=== PATIENT | male | born 1965 | race Caucasian/White ===

== ENCOUNTER 2018-10-21 03:29 | Inpatient (IN) | payer BC, MEDICARE ==
[~2018-10-21] VITALS: Ht 177.8 cm; Wt 65.8 kg
[2018-10-21] MEDS ORDERED: IV NORMAL SALINE 1000 ML BAG IV ONE ×2 (03:45→05:30)
[2018-10-21] MEDS ORDERED: ONDANSETRON 4 MG/2 ML VIAL IV ONE (03:45)
[2018-10-21] MEDS ORDERED: ONDANSETRON 4 MG/2 ML VIAL ONE (03:57)
[2018-10-21 04:09] LABS: BASOPHILS % (AUTO) 0.3 % (0.0-2.0); EOSINOPHILS % (AUTO) 0.2 % (0.0-7.0); HEMATOCRIT 42.9 % (36.7-47.1); HEMOGLOBIN 14.4 g/dL (12.5-16.3); LYMPHOCYTES # (AUTO) 2.7 K/uL (20.0-40.0); LYMPHOCYTES % (AUTO) 18.5 % (20.5-51.5); MEAN CORPUSCULAR HEMOGLOBIN 31.7 uug (23.8-33.4); MEAN CORPUSCULAR HGB CONC 34 g/dL (32.5-36.3); MEAN CORPUSCULAR VOLUME 94.7 fL (73.0-96.2); MONOCYTES # (AUTO) 1.4 K/uL (2.0-10.0); MONOCYTES % (AUTO) 9.7 % (0.0-11.0); NEUTROPHILS # (AUTO) 10.5 K/uL (1.8-8.9); NEUTROPHILS % (AUTO) 71.3 % (38.5-71.5); PLATELET COUNT (AUTO) 256 K/uL (152-348); RED BLOOD CELL COUNT(AUTO) 4.53 MIL/uL (4.06-5.63); WHITE BLOOD COUNT (AUTO) 14.7 K/uL (3.6-10.2)
[2018-10-21 04:27] LABS: BILIRUBIN,DIRECT 0.3 mg/dL (0.0-0.2); CREATININE 2.3 mg/dL (0.6-1.3); POTASSIUM 3.3 mmol/L (3.5-5.1); TOTAL PROTEIN, SERUM 6.9 g/dL (6.4-8.2)
[2018-10-21] MEDS ORDERED: POTASSIUM CHLORIDE 20 MEQ TAB.PRT.SR PO ONE (04:45)
[2018-10-21] MEDS ORDERED: PANTOPRAZOLE SODIUM 40 MG VIAL IV ONE (05:00)
[2018-10-21] MEDS ORDERED: LORAZEPAM 2 MG/1 ML VIAL IV ONE ×2 (05:00)
[2018-10-21] MEDS ORDERED: PANTOPRAZOLE SODIUM 40 MG VIAL ONE (05:05)
[2018-10-21] MEDS ORDERED: LORAZEPAM 2 MG/1 ML VIAL ONE (05:05)
[2018-10-21] MEDS ORDERED: METO25TA6 PO (05:12)
--- NOTE | 2018-10-21 05:12 | NUR ---
Pt states he takes about a dozen medications, unable to provide names and dosages at this time, only able to remember metoprolol.
[2018-10-21] MEDS ORDERED: LIDOCAINE 2% (UROJET) 10 ML JELLY MM ONE ×2 (05:20→05:30)
[2018-10-21 05:35] LABS: *BILIRUBIN,URIN 1+ (NEGATIVE); *BLOOD, URINE NEGATIVE (NEGATIVE); *CLARITY,URINE CLEAR (CLEAR); *COLOR,URINE YELLOW (YELLOW); *KETONES,URINE TRACE (NEGATIVE); LEUKOCYTE ESTERASE ,URINE NEGATIVE (NEGATIVE); NITRITE, URINE NEGATIVE (NEGATIVE); PH,URINE 5.5 (5.0-8.0); UGLUCOSE NEGATIVE (NEGATIVE)
[2018-10-21] MEDS ORDERED: MEROPENEM 1,000 MG in IV NORMAL SALINE 250 ML IV ONE (05:45)
[2018-10-21] MEDS ORDERED: VANCOMYCIN IV 1,000 MG in IV DEXTROSE 5% 250 ML IV ONE (05:45)
[2018-10-21 05:47] LABS: BACTERIA,URINE NONE SEEN /HPF (NONE SEEN); RBC,URINE 0-3 /HPF (0-3); SQUAMOUS EPITHELIAL CELL,UR FEW /HPF (NONE SEEN); WBC,URINE 0-3 /HPF (0-3)
[2018-10-21] MEDS ORDERED: MEROPENEM 1 G VIAL IV ONE (05:51)
--- NOTE | 2018-10-21 05:57 | NUR ---
Dr. Pierson speaking to [facility] nephrology.
--- NOTE | 2018-10-21 06:04 | NUR ---
Pt. admitted to Telemetry, under care of Dr. Mcmahon. Diagnosis - Dehydration, Intractable Abdominal Pain. Belongs List completed
[2018-10-21] MEDS ORDERED: ALBUTEROL SULFATE 2.5 MG/3 ML NEBU ONE (06:32)
[2018-10-21] MEDS ORDERED: IPRATROPIUM BROMIDE 0.5 MG/2.5 ML NEBU ONE (06:33)
[2018-10-21] MEDS ORDERED: ALPR1TAB7 PO (06:39)
--- NOTE | 2018-10-21 06:58 | NUR ---
pt resting in bed comfortably. no episodes of vomiting.
[2018-10-21] MEDS ORDERED: VANCOMYCIN IV 200 ML ONE (07:03)
--- NOTE | 2018-10-21 07:10 | NUR ---
Report given to OG Patel for continuty of care.
--- NOTE | 2018-10-21 07:20 | NUR ---
recieved pt in bed, resting comfortably. Still awaiting Ct result.
--- NOTE | 2018-10-21 07:45 | NUR ---
[facility]. Continue w/ vancomycin infsion.
--- NOTE | 2018-10-21 07:54 | NUR ---
admitted from home a 53 yo male with adm dx of rapid afib, renal disease leukocytosis, dehydration, awake alert and oriented x3, seen by dr gould with orders. admission assessment initiated.
[2018-10-21] MEDS ORDERED: METOCLOPRAMIDE HCL 10 MG/2 ML VIAL IV PRN (08:00)
[2018-10-21] MEDS ORDERED: LEVOFLOXACIN 500 MG/D5W 500 MG in PREMIXED 1 EACH IV SCH (08:15)
[2018-10-21 08:30] VITALS: BP 95/54
[2018-10-21] MEDS: METRONIDAZOLE 500 MG/NS 100ML 500 MG in PREMIXED 1 EACH IV SCH ×3 (09:46→21:49)
[2018-10-21] MEDS: IV D5/ 0.9% NACL 1,000 ML IV PRN ×2 (09:47→22:59)
[2018-10-21] MEDS: PANTOPRAZOLE SODIUM 40 MG VIAL IV SCH (09:49)
[2018-10-21] MEDS ORDERED: LEVOFLOXACIN 500 MG/D5W 500 MG in PREMIXED 1 EACH IV ONE (10:00)
[2018-10-21] MEDS: LORAZEPAM 2 MG/1 ML VIAL IV PRN ×2 (10:08→19:40)
[2018-10-21] MEDS: METOPROLOL TARTRATE 25 MG TABLET PO SCH ×2 (10:36→20:39)
[2018-10-21 11:20] VITALS: BP 114/63
--- NOTE | 2018-10-21 11:42 | NUR ---
RESTING COMFORTABLY, STARTED ON FLAGYL AND LEVAQUIN NO ADVERSE OR ALLERGY REACTION NOTED. CONTINUE WITH IVF AT 100 MLS/HR. STARTED ON 3L O2 NC DUE C/O SOB. SATURATING 75-97%. REMAINS AFIB UN CONTROLLED ON MONITOR RATE OF 128-132. LOPRESSOR PO STARTED. OBSERVED
[2018-10-21] MEDS: ONDANSETRON INJ 8 MG in IV NORMAL SALINE 50 ML IV PRN ×2 (12:58→21:03)
--- NOTE | 2018-10-21 13:15 | NUR ---
VOMITED LARGE AMOUNT OF SECRETION CLEAR COLOR PRN ZOFRAN GIVEN
[2018-10-21] MEDS ORDERED: POTASSIUM CHLORIDE 10 MEQ TAB.PRT.SR PO ONE (14:00)
[2018-10-21] MEDS: ALPRAZOLAM 0.5 MG TABLET PO PRN ×2 (15:03→23:03)
[2018-10-21 15:34] VITALS: BP 88/56
--- NOTE | 2018-10-21 19:30 | NUR ---
Received patient in room, vomiting clear secretions. No signs of acute distress noted. No complaints of pain or SOB. Just wants something to help with the vomiting. Patient has PRN zofran IVPB, that is due in a couple hours and explained to patient and he understood. Patient is also on antibiotics. IVF running on the right forearm. No s/s of infiltration or infection noted. Safety measures initiated. Bed is low and locked, call light within reach. Will continue to monitor.
[2018-10-21 20:00] VITALS: BP 96/65
--- NOTE | 2018-10-22 00:16 | NUR ---
Patient is now resting comfortably. PRN Zofran IVPB given and seems to be effective for now. PRN anti-anxiety medication also given and tolerated well. Patient is A-fib controlled in the 80-90s on TELE monitor. Will continue to monitor.
[2018-10-22] MEDS: LORAZEPAM 2 MG/1 ML VIAL IV PRN ×3 (01:55→20:17)
[2018-10-22 04:00] VITALS: BP 107/73
--- NOTE | 2018-10-22 04:26 | NUR ---
Around 3:50 lab endorsed blood culture result of gram positive cocci in chains. Relayed to on-call Dr. Mcmahon with new orders. Will continue to monitor.
[2018-10-22] MEDS: ONDANSETRON INJ 8 MG in IV NORMAL SALINE 50 ML IV PRN ×2 (05:20→20:36)
[2018-10-22 05:30] LABS: BASOPHILS # (AUTO) 0.1 K/uL (0.0-8.0); BASOPHILS % (AUTO) 0.4 % (0.0-2.0); HEMATOCRIT 42.4 % (36.7-47.1); HEMOGLOBIN 14.1 g/dL (12.5-16.3); LYMPHOCYTES # (AUTO) 2.5 K/uL (20.0-40.0); LYMPHOCYTES % (AUTO) 17.8 % (20.5-51.5); MEAN CORPUSCULAR HEMOGLOBIN 31.4 uug (23.8-33.4); MEAN CORPUSCULAR HGB CONC 33 g/dL (32.5-36.3); MEAN CORPUSCULAR VOLUME 94.5 fL (73.0-96.2); MONOCYTES # (AUTO) 1.3 K/uL (2.0-10.0); MONOCYTES % (AUTO) 9.2 % (0.0-11.0); NEUTROPHILS # (AUTO) 10.1 K/uL (1.8-8.9); NEUTROPHILS % (AUTO) 72.6 % (38.5-71.5); PLATELET COUNT (AUTO) 230 K/uL (152-348); RED BLOOD CELL COUNT(AUTO) 4.49 MIL/uL (4.06-5.63)
--- NOTE | 2018-10-22 05:45 | NUR ---
Patient slept intermittently throughout the night. When patient was awake, he would feel nauseous and try to vomit. Patient would vomit clear liquids, only after drinking water. PRN anti-anxiety medication would help and PRN zofran for only a short time. IVF running on the right forearm. Safety measures given. Will endorse to next shift.
[2018-10-22 05:53] LABS: CREATININE 2.3 mg/dL (0.6-1.3); PHOSPHOROUS 1.3 mg/dL (2.5-4.9); POTASSIUM 4.1 mmol/L (3.5-5.1)
[2018-10-22 06:00] LABS: MAGNESIUM 1.2 mg/dL (1.8-2.4)
--- NOTE | 2018-10-22 07:12 | NUR ---
RECEIVED PATIENT ALERT AND ORIENTED WITH NO SOB NOTED AT THIS TIME . WILL PROVIDE SAFETY AND COMFORT AT ALL TIMES. CALL LIGHT WITHIN REACHED. WILL CONTINUE TO MONITOR AND CONTINUE TREATMENT PLAN.
[2018-10-22] MEDS: ALPRAZOLAM 0.5 MG TABLET PO PRN ×2 (07:56→16:35)
[2018-10-22] MEDS: PANTOPRAZOLE SODIUM 40 MG VIAL IV SCH (08:00)
[2018-10-22] MEDS: METOPROLOL TARTRATE 25 MG TABLET PO SCH ×2 (08:01→21:03)
[2018-10-22] MEDS ORDERED: VANCOMYCIN IV 1 G in PREMIXED 0 EACH IV ONE (10:00)
[2018-10-22] MEDS ORDERED: LEVOFLOXACIN/D5W 250 MG in PREMIX 1 EA IV SCH (10:00)
[2018-10-22] MEDS: IV D5/ 0.9% NACL 1,000 ML IV PRN (10:01)
[2018-10-22 11:23] VITALS: BP 110/82
[2018-10-22] MEDS: MAGNESIUM SULFATE/D5W 100 ML IV SCH ×2 (12:02→13:04)
[2018-10-22] MEDS ORDERED: PANT20TA2 PO (12:51)
[2018-10-22] MEDS ORDERED: PRED2.5T PO ×2 (12:51)
[2018-10-22] MEDS ORDERED: TACROLIMUS PO (12:51)
[2018-10-22] MEDS ORDERED: MYCO360T PO (12:51)
[2018-10-22] MEDS ORDERED: PANT40TA4 PO (12:51)
[2018-10-22] MEDS ORDERED: AMLO10TA7 PO (12:51)
[2018-10-22] MEDS ORDERED: DILT120C11 PO (12:52)
[2018-10-22] MEDS ORDERED: ASPI-618 PO (13:03)
--- NOTE | 2018-10-22 13:26 | NUR ---
CLINICAL PHARMACY NOTE: VANCOMYCIN PHARMACY TO DOSE Subjective: to start vancomycin in this 53 y/o male for indication of bloodstream infection/early sepsis Objective: weight 65kg height 177cm BUN/Scr 17/2.3 WBC 14 temp 97.7 1gm vanco given 10/21 @0701 Random today with am labs: 8.5 Assessment/Plan As renal function is compromised, will dose per level for now. Dosed 1gm vanco at 1000 per today's random level. Next random ordered for tomorrow am. Will check when resulted and re-dose as appropriate. Will follow
[2018-10-22] MEDS ORDERED: TACROLIMUS 1 MG PO SCH (14:15)
[2018-10-22] MEDS ORDERED: SODIUM PHOSPHATE MM 15 MM in IV DEXTROSE 5% 250 ML IV ONE (14:15)
[2018-10-22] MEDS: ASPIRIN EC 81 MG TABLET.DR PO SCH ×3 (14:15→16:38)
[2018-10-22] MEDS: DILTIAZEM HCL CD 120 MG CAP.SR.24H PO SCH ×2 (14:33→21:02)
--- NOTE | 2018-10-22 14:55 | NUR ---
GOT ORDER FOR SODIUM PHOSPHATE AND ZOSYN FOR PATIENT , CALLED PHARMACY AND STATED THAT THE TWO MEDICATIONS ARE COMPATIBLE.
[2018-10-22] MEDS: PIPERACILLIN/TAZOBACTAM/D5W 50 ML IV SCH ×2 (14:58→20:27)
[2018-10-22] MEDS: predniSONE 2.5 MG TABLET PO SCH (14:59)
[2018-10-22] MEDS: PANTOPRAZOLE SODIUM 40 MG TABLET.DR PO SCH ×2 (15:13→16:38)
[2018-10-22 15:21] VITALS: BP 102/64
[2018-10-22] MEDS ORDERED: TACR1CAP PO (15:21)
[2018-10-22] MEDS ORDERED: IV NORMAL SALINE 500 ML IV ONE (15:45)
[2018-10-22] MEDS: TACROLIMUS ANHYDROUS 0.5 MG CAPSULE PO SCH (16:16)
[2018-10-22] MEDS: MYCOPHENOLIC ACID 180 MG PO SCH (16:31)
--- NOTE | 2018-10-22 18:42 | NUR ---
PATIENT ALERT AND ORIENTED X4 AND RESTING IN BED WITH NO SOB NOTED AT THIS TIME , NO C/O PAIN AT THIS TIME. WILL PROVIDE SAFETY AND COMFORT AT ALL TIMES. CALL LIGHT WITHIN REACHED. WILL CONTINUE TO MONITOR AND CONTINUE TREATMENT PLAN.
--- NOTE | 2018-10-22 19:30 | NUR ---
Received patient in room, vomiting clear liquids. Will administer PRN Zofran IVPB. No signs of acute distress. No complaints of pain just nausea. Complaining of SOB and requesting to use mask. IV on the right forearm and midline ENID are intact and patent. Patient able to make needs known. Safety measures initiated. Bed is low and locked, call light within reach. Will continue to monitor.
[2018-10-22 20:00] VITALS: BP 117/79
[2018-10-22] MEDS ORDERED: MISCELLANEOUS MED ONE (21:00)
[2018-10-22] MEDS ORDERED: MYCOPHENOLATE MOFETIL 250 MG CAPSULE PO ONE (21:00)
[2018-10-22] MEDS: ZOLPIDEM 5 MG TABLET PO PRN (23:23)
[2018-10-23 00:17] VITALS: BP 116/82
[2018-10-23] MEDS: PIPERACILLIN/TAZOBACTAM/D5W 50 ML IV SCH ×4 (02:29→20:29)
[2018-10-23 02:45] LABS: *CREATININE,URINE 31.2 mg/dL (30-125)
[2018-10-23 04:00] VITALS: BP 115/72
[2018-10-23] MEDS: IV D5/ 0.9% NACL 1,000 ML IV PRN ×2 (06:08→17:11)
[2018-10-23] MEDS: PANTOPRAZOLE SODIUM 40 MG TABLET.DR PO SCH ×2 (06:16→17:07)
[2018-10-23] MEDS: MYCOPHENOLIC ACID 180 MG PO SCH ×2 (06:34→17:21)
--- NOTE | 2018-10-23 06:37 | NUR ---
Patient slept well after receiving PRN Ambien. Patient is on 6L oxygen through mask for comfort. No signs of acute distress noted. Medication given as ordered and tolerated well. Safety measures given
[2018-10-23 06:43] LABS: BASOPHILS % (AUTO) 0.4 % (0.0-2.0); EOSINOPHILS % (AUTO) 0.1 % (0.0-7.0); HEMATOCRIT 41.9 % (36.7-47.1); LYMPHOCYTES % (AUTO) 17.3 % (20.5-51.5); MEAN CORPUSCULAR HEMOGLOBIN 31.6 uug (23.8-33.4); MEAN CORPUSCULAR HGB CONC 33 g/dL (32.5-36.3); MEAN CORPUSCULAR VOLUME 94.4 fL (73.0-96.2); MONOCYTES # (AUTO) 1.1 K/uL (2.0-10.0); NEUTROPHILS # (AUTO) 8.2 K/uL (1.8-8.9); NEUTROPHILS % (AUTO) 72.2 % (38.5-71.5); PLATELET COUNT (AUTO) 200 K/uL (152-348); RED BLOOD CELL COUNT(AUTO) 4.44 MIL/uL (4.06-5.63); WHITE BLOOD COUNT (AUTO) 11.4 K/uL (3.6-10.2)
[2018-10-23 06:59] LABS: MAGNESIUM 1.5 mg/dL (1.8-2.4); PHOSPHOROUS 3.5 mg/dL (2.5-4.9); POTASSIUM 3.2 mmol/L (3.5-5.1); VANCOMYCIN,RANDOM 12.9 ug/mL (18.0-26.0)
[2018-10-23] MEDS: TACROLIMUS ANHYDROUS 0.5 MG CAPSULE PO SCH ×2 (08:56→17:08)
[2018-10-23] MEDS: ASPIRIN EC 81 MG TABLET.DR PO SCH ×2 (08:56→17:07)
[2018-10-23] MEDS: predniSONE 2.5 MG TABLET PO SCH (08:57)
[2018-10-23] MEDS ORDERED: AMLODIPINE 10 MG TABLET PO SCH (09:00)
[2018-10-23] MEDS ORDERED: MISCELLANEOUS MED ONE (09:00)
[2018-10-23] MEDS: METOPROLOL TARTRATE 25 MG TABLET PO SCH ×2 (09:06→20:24)
[2018-10-23] MEDS: DILTIAZEM HCL CD 120 MG CAP.SR.24H PO SCH ×2 (09:07→20:23)
[2018-10-23] MEDS: ALPRAZOLAM 0.5 MG TABLET PO PRN ×2 (09:19→15:04)
[2018-10-23] MEDS ORDERED: VANCOMYCIN IV 1 G in PREMIXED 0 EACH IV ONE (10:00)
--- NOTE | 2018-10-23 10:48 | NUR ---
CLINICAL PHARMACY NOTE: VANCOMYCIN PHARMACY TO DOSE Subjective: to continue vancomycin in this 53 y/o male for indication of bloodstream infection/early sepsis Objective: weight 65kg height 177cm BUN/Scr 13/2.0 WBC 14 (10/22) temp 98.2 1gm vanco given 10/21 @0701 Random today with am labs: 12.9 Assessment/Plan As renal function is compromised, will dose per level for now. Dosed 1gm vanco at 1000 per today's random level. Next random ordered for tomorrow am. Will check when resulted and re-dose as appropriate. Will follow
[2018-10-23] MEDS: LORAZEPAM 2 MG/1 ML VIAL IV PRN ×2 (11:19→18:18)
[2018-10-23 11:36] VITALS: BP 123/89
[2018-10-23] MEDS ORDERED: POTASSIUM CHLORIDE 10 MEQ TAB.PRT.SR PO ONE (12:45)
[2018-10-23] MEDS ORDERED: MAGNESIUM SULFATE/D5W 100 ML IV SCH (12:45)
[2018-10-23 14:57] VITALS: BP 111/77
--- NOTE | 2018-10-23 19:05 | NUR ---
Received patient in bed awake, A&Ox3. Not in distress at this time. No complaints of pain, no episodes of n/v at this time. ENID midline intact and patent. IV access to R wrist infiltrated, removed w/ complete tip. Cold compress applied to site. Kept bed in low position, locked w/ side rails up x 2. Call light within reach. Will continue to monitor
--- NOTE | 2018-10-23 19:28 | NUR ---
Pt received, assessed, AOx3, able to make needs known. Pt denies pain, just nausea, no SOB on 6L mask. Pt compliant with routine medications and care as provided. Pt seen by [facility] and [facility]. New orders received. IV in right arm and ENID midline flushed and patent running fluids and antibiotics. VSS. Stool sample collected and send to lab. All comfort and safety measures implemented. Call light and personal belongings placed within reach. Will continue to monitor and endorse to oncoming cook night
[2018-10-23 20:24] VITALS: BP 111/61
[2018-10-23] MEDS ORDERED: MYCOPHENOLATE MOFETIL 250 MG CAPSULE PO ONE (21:00)
[2018-10-23] MEDS: ZOLPIDEM 5 MG TABLET PO PRN (22:53)
[2018-10-24] MEDS: PIPERACILLIN/TAZOBACTAM/D5W 50 ML IV SCH ×3 (01:38→13:33)
[2018-10-24] MEDS: IV D5/ 0.9% NACL 1,000 ML IV PRN ×2 (05:56→22:43)
[2018-10-24 06:00] VITALS: BP 105/72
--- NOTE | 2018-10-24 06:15 | NUR ---
Patient took PRN Ambien and was able to sleep throughout the night. Patient has been compliant and cooperative w/ nursing care. Patient is for ultrasound of abdomen this AM, instructed to be NPO. All needs attended.
[2018-10-24 06:37] LABS: CREATININE 2.1 mg/dL (0.6-1.3); MAGNESIUM 1.5 mg/dL (1.8-2.4); VANCOMYCIN,RANDOM 16.3 ug/mL (18.0-26.0)
--- NOTE | 2018-10-24 07:30 | NUR ---
PATIENT IS AWAKE, ON O2 4 LITER VIA FACE MASK, O2 SAT 99%, NO ACUTE DISTRESS NOTED AT THIS TIME
[2018-10-24] MEDS ORDERED: POTASSIUM CHLORIDE 20 MEQ TAB.PRT.SR PO ONE (08:30)
[2018-10-24] MEDS ORDERED: MISCELLANEOUS MED ONE (09:00)
[2018-10-24] MEDS ORDERED: MYCOPHENOLATE MOFETIL 250 MG CAPSULE PO ONE ×2 (09:00→21:00)
[2018-10-24] MEDS: ASPIRIN EC 81 MG TABLET.DR PO SCH ×2 (09:25→16:56)
[2018-10-24] MEDS: METOPROLOL TARTRATE 25 MG TABLET PO SCH ×2 (09:27→21:00)
[2018-10-24] MEDS: DILTIAZEM HCL CD 120 MG CAP.SR.24H PO SCH ×2 (09:27→20:48)
[2018-10-24] MEDS: predniSONE 2.5 MG TABLET PO SCH (09:28)
[2018-10-24] MEDS: MYCOPHENOLIC ACID 180 MG PO SCH ×2 (09:31→16:57)
[2018-10-24] MEDS: TACROLIMUS ANHYDROUS 0.5 MG CAPSULE PO SCH ×2 (09:42→16:57)
[2018-10-24] MEDS: PANTOPRAZOLE SODIUM 40 MG TABLET.DR PO SCH ×2 (09:42→16:56)
[2018-10-24] MEDS: MAGNESIUM SULFATE/D5W 100 ML IV SCH ×2 (09:58→11:16)
[2018-10-24] MEDS ORDERED: VANCOMYCIN IV 1 G in PREMIXED 0 EACH IV ONE (10:00)
--- NOTE | 2018-10-24 10:01 | NUR ---
patient is alert, oriented x4, verbally responsive, noted with SOB, anxious, however o2 sat is 99% at 4 liter of oxygen via face mask, MD aware, charge nurse and dock operations supervisor is aware about patient current condition. patient kept NPO untill 9am, because of abdminal ultrasound, abdominal ultrasound performed, all the meds administered after abdominal ultrasound.
[2018-10-24 10:53] LABS: ABG BASE EXCESS -2.2 mmol/L; ABG HCO3 11.6 mmol/L; ABG PCO2 8.4 mmHg (35.0-45.0); ABG PH 7.757 (7.350-7.450); ABG PO2 157.5 mmHg (75.0-100.0); ABG SITE RIGHT RADIAL; ABG TOTAL HEMOGLOBIN 15.1 G/dL (13.5-18.0); COHb 0.8 % (0.5-1.5); MetHb 0.1 % (0.0-1.5); O2Hb 98.5 % (94.0-97.0)
--- NOTE | 2018-10-24 11:06 | NUR ---
first time called at 11:04 am for abnormal lab results for ABGs, spoke to jimena from the office to page dr wallace, spoke to jimena about abnormal ABGs of patient, waiting for call back
[2018-10-24 12:07] VITALS: BP 100/64
--- NOTE | 2018-10-24 12:12 | NUR ---
MD MEIER CALLED BACK WITH IN 15 MINUTES, REPORTED ABGs results
--- NOTE | 2018-10-24 14:23 | NUR ---
CLINICAL PHARMACY NOTE: VANCOMYCIN PHARMACY TO DOSE Subjective: to continue vancomycin in this 53 y/o male for indication of bloodstream infection/early sepsis Objective: weight 65kg height 177cm BUN/Scr 12/2.1 WBC 14 (10/22) temp 98.8 1gm vanco given 10/23 @1000 Random today with am labs: 16.3 Assessment/Plan As renal function is compromised, will dose per level for now. Dosed 1gm vanco at 1000(given at 1145) per today's random level. Next random ordered for tomorrow at 1400. Will check when resulted and re-dose as appropriate. Will follow
[2018-10-24] MEDS: ALPRAZOLAM 0.5 MG TABLET PO PRN (14:47)
[2018-10-24 15:25] VITALS: BP 104/65
--- NOTE | 2018-10-24 18:06 | NUR ---
PATIENT IS ALERT, ORIENTED X4, VERBALLY RESPONSIVE, NO SOB AT THIS TIME. RESP EVEN NONLABORED,SKIN WARM AND DRY TO TOUCH, TOLERATED MEALS AND MEDS WELL, DENIED ANY NAUSEA, NO VOMITING, NOTED WITH ANXIOUS MOOD, PATIENT REQUESTED XANAX, ADMINISTERED ORDERED, EFFECTIVE, PATIENT RESTED FOR 2 HOURS, STILL ON SUPPLEMENTAL OXYGEN VIA FACE MASK. NO ACUTE DISTRESS NOTED, NEEDS ATTENDED TIMELY, QUESTIONS ANSWERED APPROPRIATELY AND NEEDS ADDRESSED, WILL ENDORSE TO LABORATORY TECHNICAL SPECIALIST ACCORDINGLY
--- NOTE | 2018-10-24 20:00 | NUR ---
Pt. in room alert oriented x4, standing in room next to bed listening to music via phone. Face mask on 6 L of oxygen. Right Upper midline intact, patent, and running fluids. Safety measures in place. Will continue to monitor pt.
[2018-10-24 20:04] VITALS: BP 113/65
[2018-10-24] MEDS: CEFTRIAXONE 1 G in IV DEXTROSE 5% 50 ML IV SCH (20:46)
[2018-10-24] MEDS: ZOLPIDEM 5 MG TABLET PO PRN (22:57)
--- NOTE | 2018-10-25 06:00 | NUR ---
Pt. resting in bed alert oriented x4. Pt. has R upper arm midline intact running fluids. Pt. denies any pain. All medications given. Safety measures in place. Call light within reach. Will endorse to AM nurse.
[2018-10-25 06:33] LABS: BASOPHILS % (AUTO) 0.5 % (0.0-2.0); EOSINOPHILS # (AUTO) 0.1 K/uL (0.0-0.7); EOSINOPHILS % (AUTO) 1.8 % (0.0-7.0); HEMATOCRIT 43.1 % (36.7-47.1); HEMOGLOBIN 14.3 g/dL (12.5-16.3); LYMPHOCYTES # (AUTO) 2.4 K/uL (20.0-40.0); LYMPHOCYTES % (AUTO) 28.7 % (20.5-51.5); MEAN CORPUSCULAR HEMOGLOBIN 31.6 uug (23.8-33.4); MEAN CORPUSCULAR HGB CONC 33 g/dL (32.5-36.3); MEAN CORPUSCULAR VOLUME 94.9 fL (73.0-96.2); MONOCYTES # (AUTO) 0.8 K/uL (2.0-10.0); NEUTROPHILS # (AUTO) 4.9 K/uL (1.8-8.9); PLATELET COUNT (AUTO) 215 K/uL (152-348); RED BLOOD CELL COUNT(AUTO) 4.54 MIL/uL (4.06-5.63); WHITE BLOOD COUNT (AUTO) 8.4 K/uL (3.6-10.2)
[2018-10-25] MEDS: PANTOPRAZOLE SODIUM 40 MG TABLET.DR PO SCH ×2 (06:36→17:05)
[2018-10-25 06:42] LABS: BILIRUBIN,TOTAL 0.8 mg/dL (0.2-1.0); CREATININE 1.7 mg/dL (0.6-1.3); MAGNESIUM 1.7 mg/dL (1.8-2.4); PHOSPHOROUS 3.1 mg/dL (2.5-4.9); TOTAL PROTEIN, SERUM 6.8 g/dL (6.4-8.2)
[2018-10-25 06:44] VITALS: BP 110/71
[2018-10-25] MEDS ORDERED: POTASSIUM CHLORIDE 20 MEQ POWDER PACKET PO ONE (07:30)
--- NOTE | 2018-10-25 07:42 | NUR ---
patient received ambulating on the bedside and tolerating well on room air. relationship management lead in to see patient, with no complaionts made
[2018-10-25] MEDS ORDERED: POTASSIUM CHLORIDE 20 MEQ TAB.PRT.SR PO ONE ×2 (08:00→12:00)
[2018-10-25] MEDS: MAGNESIUM SULFATE/D5W 100 ML IV SCH ×2 (08:13→10:14)
[2018-10-25] MEDS: MYCOPHENOLIC ACID 180 MG PO SCH ×2 (08:14→17:11)
--- NOTE | 2018-10-25 08:24 | NUR ---
magnesium 1 gm infused .chest xray compkleted,on isolation for cdiff
[2018-10-25] MEDS ORDERED: MYCOPHENOLATE MOFETIL 250 MG CAPSULE PO ONE ×2 (08:27→21:00)
[2018-10-25] MEDS: TACROLIMUS ANHYDROUS 0.5 MG CAPSULE PO SCH ×2 (08:56→17:05)
[2018-10-25] MEDS: DILTIAZEM HCL CD 120 MG CAP.SR.24H PO SCH ×2 (08:57→22:05)
[2018-10-25] MEDS: predniSONE 2.5 MG TABLET PO SCH (08:57)
[2018-10-25] MEDS: ASPIRIN EC 81 MG TABLET.DR PO SCH ×2 (08:57→17:05)
[2018-10-25] MEDS: METOPROLOL TARTRATE 25 MG TABLET PO SCH ×2 (08:58→20:20)
[2018-10-25] MEDS: IV D5/ 0.9% NACL 1,000 ML IV PRN ×2 (10:17→23:40)
[2018-10-25 10:43] VITALS: BP 111/73
--- NOTE | 2018-10-25 15:37 | NUR ---
CLINICAL PHARMACY NOTE: VANCOMYCIN PHARMACY TO DOSE Subjective: to continue vancomycin in this 53 y/o male for indication of bloodstream infection/early sepsis Objective: weight 65kg height 177cm BUN/Scr 11/11.7 WBC 8.4 temp 98 Random today at 1400: 14.3 Assessment/Plan As renal function is compromised, will dose per level for now. Since vanco random level is 14.3, will give vanco 1gm IVPB x1 dose today at 1600. Next random ordered for tomorrow at 1500. Will check when resulted and re-dose as appropriate. Will follow
[2018-10-25] MEDS ORDERED: VANCOMYCIN IV 1 G in PREMIXED 0 EACH IV ONE (16:00)
[2018-10-25 16:42] VITALS: BP 120/80
[2018-10-25] MEDS: CEFTRIAXONE 1 G in IV DEXTROSE 5% 50 ML IV SCH (19:29)
--- NOTE | 2018-10-25 20:00 | NUR ---
Pt. standing at bedside with family member. Pt. is alert oriented x4. IV in R upper arm midline intact. Pt. denies any SOB or difficulty breathing. Pt. denies any pain. Safety measures in place. Will continue to monitor.
[2018-10-25 20:23] VITALS: BP 111/69
[2018-10-25] MEDS: LORAZEPAM 2 MG/1 ML VIAL IV PRN (23:56)
[2018-10-26] MEDS: ZOLPIDEM 5 MG TABLET PO PRN (01:13)
[2018-10-26 05:58] VITALS: BP 125/78
[2018-10-26] MEDS: PANTOPRAZOLE SODIUM 40 MG TABLET.DR PO SCH ×2 (06:14→17:43)
--- NOTE | 2018-10-26 06:46 | NUR ---
Pt. resting in bed. Pt. is alert oriented x4. Pt. slept intermittently throughout night. IV in R upper arm midline intact. Pt. denies any SOB or difficulty breathing. Pt. denies any pain. PRN ambien given for sleep. Effective. PRN Ativan given for anxiety. effective. Safety measures in place. Will continue to monitor.
[2018-10-26 06:52] LABS: CREATININE 1.4 mg/dL (0.6-1.3); MAGNESIUM 1.6 mg/dL (1.8-2.4); PHOSPHOROUS 2.7 mg/dL (2.5-4.9); POTASSIUM 3.3 mmol/L (3.5-5.1)
[2018-10-26 07:16] LABS: BASOPHILS # (AUTO) 0.1 K/uL (0.0-8.0); BASOPHILS % (AUTO) 0.6 % (0.0-2.0); EOSINOPHILS # (AUTO) 0.2 K/uL (0.0-0.7); EOSINOPHILS % (AUTO) 2.3 % (0.0-7.0); HEMOGLOBIN 13.7 g/dL (12.5-16.3); LYMPHOCYTES # (AUTO) 1.5 K/uL (20.0-40.0); LYMPHOCYTES % (AUTO) 16.4 % (20.5-51.5); MEAN CORPUSCULAR HEMOGLOBIN 31.3 uug (23.8-33.4); MEAN CORPUSCULAR HGB CONC 33 g/dL (32.5-36.3); MEAN CORPUSCULAR VOLUME 95.7 fL (73.0-96.2); MONOCYTES % (AUTO) 11.1 % (0.0-11.0); NEUTROPHILS # (AUTO) 6.2 K/uL (1.8-8.9); NEUTROPHILS % (AUTO) 69.6 % (38.5-71.5); PLATELET COUNT (AUTO) 186 K/uL (152-348); RED BLOOD CELL COUNT(AUTO) 4.39 MIL/uL (4.06-5.63); WHITE BLOOD COUNT (AUTO) 8.9 K/uL (3.6-10.2)
--- NOTE | 2018-10-26 07:30 | NUR ---
Patient calm and comfortable laying in bed with no signs of distress ; call light with in reach, all safety devices in place.
[2018-10-26] MEDS: ASPIRIN EC 81 MG TABLET.DR PO SCH ×2 (08:01→17:43)
[2018-10-26] MEDS: TACROLIMUS ANHYDROUS 0.5 MG CAPSULE PO SCH ×2 (08:03→17:46)
[2018-10-26] MEDS: METOPROLOL TARTRATE 25 MG TABLET PO SCH ×2 (08:05→20:34)
[2018-10-26] MEDS: DILTIAZEM HCL CD 120 MG CAP.SR.24H PO SCH ×2 (08:05→20:34)
[2018-10-26] MEDS: MYCOPHENOLIC ACID 180 MG PO SCH ×2 (08:07→17:46)
[2018-10-26] MEDS: predniSONE 2.5 MG TABLET PO SCH (08:11)
[2018-10-26] MEDS: IV D5/ 0.9% NACL 1,000 ML IV PRN (10:02)
--- NOTE | 2018-10-26 11:08 | NUR ---
CLINICAL PHARMACY NOTE: VANCOMYCIN PHARMACY TO DOSE Subjective: to continue vancomycin in this 53 y/o male for indication of bloodstream infection/early sepsis Objective: weight 65kg height 177cm BUN/Scr 12/1.4 WBC 8.9 temp 98.2 Random pending today at 1500 Assessment/Plan As renal function is compromised, will dose per level for now. Last vanco 1gm IVPB x1 dose given yesterday at 1600. Next random pending today at 1500. Will check when resulted and re-dose as appropriate. Will follow Addendum: 10/26/18 at 1549 by KRUNAL MCCAIN ADM UPDATE: RANDOM RESULTED 13.2, WILL DOSE 1GM VANCO X 1 FOR 1600. NEXT RANDOM TOMORROW WITH AM LABS. WILL CHECK AND REDOSE NEEDED. WILL FOLLOW
[2018-10-26 11:42] VITALS: BP 133/85
[2018-10-26] MEDS ORDERED: POTASSIUM CHLORIDE 20 MEQ TAB.PRT.SR PO ONE (14:00)
[2018-10-26] MEDS: MAGNESIUM SULFATE/D5W 100 ML IV SCH ×2 (14:39→16:00)
[2018-10-26 16:00] VITALS: BP 121/82
[2018-10-26] MEDS ORDERED: VANCOMYCIN IV 1 G in PREMIXED 0 EACH IV ONE (16:00)
[2018-10-26] MEDS ORDERED: VANCOMYCIN IV 1 G in PREMIXED 0 EACH IV SCH (16:00)
--- NOTE | 2018-10-26 19:40 | NUR ---
Patient has stable vital signs with no signs of distress. laying calm and comfortable in bed.
--- NOTE | 2018-10-26 20:00 | NUR ---
PATIENT ALERT ORIENTED, NO SOB NO CHEST PAIN NOTED. R UPPER ARM MIDLINE INTACT, NO COMPLAIN OF PAIN AT THIS TIME. CONT TO MONITOR.
[2018-10-26] MEDS: CEFTRIAXONE 1 G in IV DEXTROSE 5% 50 ML IV SCH (20:33)
[2018-10-26] MEDS ORDERED: MYCOPHENOLATE MOFETIL 250 MG CAPSULE PO ONE (21:00)
[2018-10-26] MEDS: ALPRAZOLAM 0.5 MG TABLET PO PRN (22:07)
[2018-10-27] MEDS: IV D5/ 0.9% NACL 1,000 ML IV PRN ×2 (00:34→10:54)
[2018-10-27] MEDS: LORAZEPAM 2 MG/1 ML VIAL IV PRN (04:30)
[2018-10-27 05:09] VITALS: BP 115/74
[2018-10-27] MEDS: PANTOPRAZOLE SODIUM 40 MG TABLET.DR PO SCH ×2 (06:20→16:30)
[2018-10-27] MEDS: MYCOPHENOLIC ACID 180 MG PO SCH ×2 (06:21→16:30)
[2018-10-27 07:00] LABS: CREATININE 1.3 mg/dL (0.6-1.3); MAGNESIUM 1.6 mg/dL (1.8-2.4); POTASSIUM 3.2 mmol/L (3.5-5.1)
--- NOTE | 2018-10-27 07:42 | NUR ---
Patient alert oriented, no sob no chest pain. Patient has episodes of anxiety, medicated for pain, cont to monitor. No complain of pain at this time cont to monitor.
[2018-10-27] MEDS: TACROLIMUS ANHYDROUS 0.5 MG CAPSULE PO SCH ×2 (08:44→16:30)
[2018-10-27] MEDS: predniSONE 2.5 MG TABLET PO SCH (08:45)
[2018-10-27] MEDS: ASPIRIN EC 81 MG TABLET.DR PO SCH ×2 (08:45→16:30)
[2018-10-27] MEDS: METOPROLOL TARTRATE 25 MG TABLET PO SCH (09:33)
[2018-10-27] MEDS: DILTIAZEM HCL CD 120 MG CAP.SR.24H PO SCH (09:33)
[2018-10-27 11:07] VITALS: BP 123/85
[2018-10-27] MEDS ORDERED: POTASSIUM CHLORIDE 20 MEQ TAB.PRT.SR PO ONE (13:00)
[2018-10-27] MEDS ORDERED: MAGNESIUM OXIDE 400 MG TABLET PO ONE (13:00)
[2018-10-27 15:03] VITALS: BP 121/82
[2018-10-27] MEDS ORDERED: MYCOPHENOLATE MOFETIL 250 MG CAPSULE PO ONE (16:00)
--- NOTE | 2018-10-27 18:49 | NUR ---
Finished evening dose of Rocephin IV via midline. Pt went home alone ride thru [employer], wheelchaired downstairs. Pt went home with midline on ENID for continued use of IV Rocephin and HH RN visit. discharge instructions given regarding medications, activities, diet and follow up appointments. encouraged for questions, none raised.
== END 2018-10-27 18:45 | disposition home health service (06) | DRG 872 ==
LOC: ER 03:31 → TELE3 07:25 → MEDSURG3 10-23 15:20
PROVIDERS: ADMIT Internal Medicine Nephrology; ATTEND Internal Medicine Nephrology
PROC: 05HA33Z Insertion of Infusion Device into Left Brachial Vein, Percutaneous Approach (ICD-10-PCS; principal; 2018-10-22)
DX: A40.9 Streptococcal sepsis, unspecified (principal); A04.9 Bacterial intestinal infection, unspecified; T86.12 Kidney transplant failure; Z94.83 Pancreas transplant status; E87.4 Mixed disorder of acid-base balance; R65.20 Severe sepsis without septic shock; E86.0 Dehydration; I48.91 Unspecified atrial fibrillation; I48.0 Paroxysmal atrial fibrillation; E10.9 Type 1 diabetes mellitus without complications; Z79.4 Long term (current) use of insulin; G43.A0 Cyclical vomiting, in migraine, not intractable; F32.9 Major depressive disorder, single episode, unspecified; E10.22 Type 1 diabetes mellitus with diabetic chronic kidney disease; N18.9 Chronic kidney disease, unspecified; E87.6 Hypokalemia; E83.42 Hypomagnesemia; E83.39 Other disorders of phosphorus metabolism; F41.1 Generalized anxiety disorder; K57.90 Diverticulosis of intestine, part unspecified, without perforation or abscess without bleeding; R09.02 Hypoxemia
CPT/HCPCS: 36415; 36600; 70030-TC; 71045; 76705; 83605; 83690; 83735; 84100; 84300; 85025; 85610; 87040; 87086; 93307; A4663; C1758; C9113; G0378; J0696; J1956; J2060; J2185; J2405; J2543; J3370; J3475; J3490; J3590; J7030; J7040; J7042; J7050; J7060; J7507; J7512; J7517